=== PATIENT | female | born 1975 ===

== ENCOUNTER 2018-07-09 17:23 | Emergency (ER) | payer OTHER ==
[2018-07-09] MEDS ORDERED: NS 0.9% 1000 ML* 1,000 ML IV ONE (18:47)
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
[2018-07-09 19:08] LABS: ABS Basophils 0.1 10^3/ul (0-0.2); ABS Eosinophils 0.1 10^3/ul (0-0.6); ABS Lymphocytes 1.8 10^3/ul (1.0-4.8); ABS Monocytes 0.5 10^3/ul (0-0.8); ABS Nucleated RBC 0 10^3/ul; Eosinophil % 0.8 % (0-6); Hematocrit 39 % (35-47); Hemoglobin 13.6 g/dl (12.0-16.0); Lymphocyte % 24.1 % (25-47); Mean Corpuscular HGB Conc 35 g/dl (31-36); Mean Corpuscular Hemoglobin 33 pg (27-31); Mean Corpuscular Volume 94 fL (80-97); Mean Platelet Volume 7.8 um3 (7.4-10.4); Nucleated Red Blood Cells % 0.1; Platelet Count 268 10^3/ul (150-450); Red Blood Count 4.19 10^6/ul (4.00-5.40); Red Cell Distribution Width 13 % (10.5-15); White Blood Count 7.4 10^3/ul (3.5-10.8)
[2018-07-09 19:13] LABS: INR 0.82 (0.77-1.02)
[2018-07-09 19:30] LABS: EGFR Non-African American 77.2 (>60)
[2018-07-09] MEDS ORDERED: Iohexol 300* (CONTRAST) 10 ML SDV IV ONE (19:37)
[2018-07-09 20:00] LABS: Urine Appearance Clear; Urine Blood Negative (Negative); Urine Color Straw; Urine Ketones Negative (Negative); Urine Protein Negative (Negative); Urine Specific Gravity 1.004 (1.010-1.030); Urine Urobilinogen Negative (Negative)
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
[2018-07-09] MEDS ORDERED: Ibuprofen TAB* 600 MG PO ONE (20:40)
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
[2018-07-09] MEDS ORDERED: Cyclobenzaprine TAB* 10 MG PO ONE (21:11)
[2018-07-09 21:31] VITALS: BP 126/74
== END 2018-07-09 21:29 | disposition home or self-care (01) ==
LOC: ED 17:23
DX: S13.9XXA Sprain of joints and ligaments of unspecified parts of neck, initial encounter (principal); M54.9 Dorsalgia, unspecified; R51 Headache; R55 Syncope and collapse; M54.2 Cervicalgia; V49.9XXA Car occupant (driver) (passenger) injured in unspecified traffic accident, initial encounter; Y92.9 Unspecified place or not applicable
CPT/HCPCS: 36415; 70450; 71260; 72125; 74177; 80053; 81003; 83605; 83690; 84484; 84702; 85025; 85610; 93005; 96365; 99284; A9270-GY; Q9967